=== PATIENT | male | born 1970 | race Caucasian/White ===

== ENCOUNTER → 2019-05-30 | Outpatient (CLI) | payer SELFPAY | END | disposition home or self-care (01) | LOC: RESCLI 15:18 | DX: I50.9 Heart failure, unspecified (principal); F17.210 Nicotine dependence, cigarettes, uncomplicated; Z76.89 Persons encountering health services in other specified circumstances ==

== ENCOUNTER 2019-10-01 11:09 | Emergency (ER) | payer OTHER ==
[~2019-10-01] VITALS: Ht 167.6 cm; Wt 68.0 kg
[2019-10-01] MEDS ORDERED: TESSALON PERLE100 M1 PO (11:52)
[2019-10-01] MEDS ORDERED: FLONASE ALLERG9.9 ML NAS (11:52)
[2019-10-01] MEDS ORDERED: SEPTDS PO (11:52)
== END 2019-10-01 11:57 | disposition home or self-care (01) ==
LOC: ED 11:09
DX: J32.9 Chronic sinusitis, unspecified (principal); F17.200 Nicotine dependence, unspecified, uncomplicated